=== PATIENT | female | born 1975 | race Caucasian/White ===

== ENCOUNTER 2019-07-19 23:29 | Emergency (ER) | payer OTHER ==
[~2019-07-19] VITALS: Ht 165.1 cm; Wt 95.3 kg
[2019-07-19] MEDS ORDERED: COZAAR50 MG PO (23:39)
[2019-07-20] MEDS ORDERED: KETO10TA2 PO (02:14)
== END 2019-07-20 02:44 | disposition home or self-care (01) ==
LOC: ER 23:29
DX: S60.012A Contusion of left thumb without damage to nail, initial encounter (principal); W23.0XXA Caught, crushed, jammed, or pinched between moving objects, initial encounter; Y93.89 Activity, other specified; Y92.098 Other place in other non-institutional residence as the place of occurrence of the external cause; Y99.8 Other external cause status

== ENCOUNTER 2023-06-01 08:36 | Inpatient (IN) | payer OTHER ==
[~2023-06-01] VITALS: Ht 165.1 cm; Wt 81.6 kg
[~2023-06-01 08:36] MED LIST: COZAAR50 MG PO; KETO10TA2 PO
[2023-06-02] MEDS ORDERED: LOSARTAN-HCTZ1 EAC2 PO (15:04)
[2023-06-02] MEDS ORDERED: HYZAAR 100-12.1 EACH PO (15:05)
[2023-06-10 11:29] LABS: HEMATOCRIT 27.2 % (36.0-45.00); MEAN CELL VOLUME 71.4 fL (80.00-100.00); MEAN CORPUSCULAR HEMOGLOBIN 22.3 pg (27.00-32.0); MEAN CORPUSCULAR HGB CONC 31.2 g/dl (32.0-36.0); PLATELET COUNT 289 K/uL (150-450); RED BLOOD COUNT 3.81 M/uL (4.00-6.00); RED CELL DISTRIBUTION WIDTH 17.4 % (11.5-14.5)
[2023-06-10 11:32] LABS: HEMOGLOBIN 8.5 g/dL (12.0-15.00)
== END 2023-06-12 12:29 | disposition home or self-care (01) | DRG 743 ==
LOC: O/R 06-09 08:05 → OB/GYN 06-09 08:05 → SURH 06-09 10:30 → OB/GYN 06-09 14:34
PROVIDERS: ADMIT Obstetrics & Gynecology; ATTEND Obstetrics & Gynecology
PROC: 0DNW0ZZ Release Peritoneum, Open Approach (ICD-10-PCS; 2023-06-09)
PROC: 0UT90ZL Resection of Uterus, Supracervical, Open Approach (ICD-10-PCS; principal; 2023-06-09 10:30)
DX: D25.1 Intramural leiomyoma of uterus (principal); N80.03 Adenomyosis of the uterus; N73.6 Female pelvic peritoneal adhesions (postinfective); Z20.822 Contact with and (suspected) exposure to COVID-19; N80.202 Endometriosis of left fallopian tube, unspecified depth